=== PATIENT | male | born 1980 | race Caucasian/White ===

== ENCOUNTER 2020-09-29 09:57 | Emergency (ER) | payer BC, SELFPAY ==
[2020-09-29 10:18] VITALS: BP 146/80; PULSE 94; RESP 16; TEMP 36.7; O2SAT 98; BMI 26.5
--- NOTE | 2020-09-29 10:58 | XR_ITS ---
EXAMINATION: XR LUMBOSACRAL SPINE CLINICAL INFORMATION: Lower back pain COMPARISON: None TECHNIQUE: Three views of the lumbosacral spine. FINDINGS: There are 5 non rib bearing lumbar vertebra. No acute fracture, spondylolisthesis, or spondylolysis is identified. There is moderate narrowing of the L5-S1 disc space. Sacroiliac joints appear unremarkable. XR/XR lumbar spine 2-3V IMPRESSION: No significant bony abnormalities of the lumbar spine identified.
[2020-09-29 11:39] LABS: Glucose Urine UA NEG (NEG); Leukocyte Esterase Urine NEG (NEG); Nitrite Urine NEG (NEG); Specific Gravity - Urine 1.025 (1.005-1.025); Urine Blood TRACE (NEG); Urine Ketones 5 MG/DL (NEG); Urine Protein NEG (NEG-TRACE)
[2020-09-29 11:41] LABS: Appearance Urine CLEAR; Color Urine YELLOW
[2020-09-29 11:49] LABS: Mucus Urine TRACE /LPF; RBC Urine 0-2 /HPF (0); Squamous Epithelial Cell Urine TRACE /LPF; WBC Urine 0 /HPF (0-4)
--- NOTE | 2020-09-29 12:12 | ED_ITS ---
HPI - General Adult General Chief complaint: General Medical <Aroldo Perez NP - Last Filed: 09/29/20 12:47> Stated complaint: back pain <Aroldo Perez NP - Last Filed: 09/29/20 12:47> Time Seen by Provider: 09/29/20 10:58 <Aroldo Perez NP - Last Filed: 09/29/20 12:47> Source: patient <Aroldo Perez NP - Last Filed: 09/29/20 12:47> Mode of arrival: ambulatory <Aroldo Perez NP - Last Filed: 09/29/20 12:47> Limitations: no limitations <Aroldo Perez NP - Last Filed: 09/29/20 12:47> History of Present Illness HPI narrative: States right lower back pain unsure if he does something to pull his back pain has been positional for the past 2 or 3 days. States he had to call a work today for this. Denies any dysuria or hematuria. States he does have history of renal calculi but this feels different and he had it last time on the left side. No fever, headache or neck pain. No IVDA use. <Aroldo Perez NP - Last Filed: 09/29/20 12:47> Onset (ago): day(s) <Aroldo Perez NP - Last Filed: 09/29/20 12:47> Severity: moderate <Aroldo Perez NP - Last Filed: 09/29/20 12:47> Relieving factors: immobilization <Aroldo Perez NP - Last Filed: 09/29/20 12:47> Exacerbating factors: movement (States twisting about 90 degrees to the left exacerbates his pain) <Aroldo Perez NP - Last Filed: 09/29/20 12:47> Associated symptoms: denies other symptoms <Aroldo Perez NP - Last Filed: 09/29/20 12:47> Treatments prior to arrival: none <Aroldo Perez NP - Last Filed: 09/29/20 12:47> Related Data Home medications: Previous Rx's Medication Instructions Recorded cyclobenzaprine 5 mg PO TID PRN #14 tab 09/29/20 ibuprofen 800 mg PO Q8H PRN #30 tab 09/29/20 <GONZALO Jimenez Last Filed: 09/29/20 12:47> Allergies/adverse reactions: Allergies Allergy/AdvReac Type Severity Reaction Status Date / Time No Known Allergies Allergy Verified 09/29/20 10:16 <Aroldo Perez NP - Last Filed: 09/29/20 12:47> Review of Systems Review of Systems: Constitutional: No Weight loss, No Fever, No Chills, No Night Sweats, No Fatigue, No Malaise ENT/Mouth: No Hearing loss, No Ear Pain, No Nasal Congestion, No Sinus Pain, No Hoarseness, No sore throat, No Rhinorrhea, No Swallowing Difficulty Eyes: Negative Cardiovascular: No Chest Pain, No SOB, No Dyspnea on Exertion, No Orthopnea, No Edema, No Palpitations Respiratory: No Cough, No Sputum, No Wheezing, No Dyspnea Gastrointestinal: No Nausea, No Vomiting, No Diarrhea, No Constipation, No abdominal Pain, No Hematochezia, No Melena Genitourinary: no irregular bleeding, No Dysuria, No Urinary Frequency, No Hematuria, No Urinary Incontinence, No Urgency, No Flank Pain Musculoskeletal: No joint pain, No Myalgias, No Joint Swelling, has noted HPI Skin: No Skin Lesions, No rash Neuro: No Weakness, No Numbness, No Paresthesias, No Loss of Consciousness, No Dizziness, No Headache Psych: No Social Issues Heme/Lymph: Negative Endocrine: Negative <Aroldo Perez NP - Last Filed: 09/29/20 12:47> Yes all other systems are reviewed and are negative <Aroldo Perez NP - Last Filed: 09/29/20 12:47> [facility] Past Medical History Medical History: Medical History (Updated 09/29/20 @ 12:40 by Aroldo Perez NP) Kidney stone on left side <Aroldo Perez NP - Last Filed: 09/29/20 12:47> Social History Social History: Social History Smoked in Last 30 Days: No Use of substances other than those prescribed or required for medical reasons: No Advance Directives: No Advance Directives Information Provided: No <Aroldo Perez NP - Last Filed: 09/29/20 12:47> Physical Exam Vital Signs: Vital Signs: Last Vital Signs Temp 98.1 F 09/29/20 10:18 Pulse 94 09/29/20 10:18 Resp 16 09/29/20 10:18 BP 146/80 H 09/29/20 10:18 Pulse Ox 98 09/29/20 10:18 Body Mass Index 26.5 Reviewed <Aroldo Perez NP - Last Filed: 09/29/20 12:47> Vital Signs: Last Vital Signs Temp 98.1 F 09/29/20 10:18 Pulse 94 09/29/20 10:18 Resp 16 09/29/20 10:18 BP 146/80 H 09/29/20 10:18 Pulse Ox 98 09/29/20 10:18 Body Mass Index 26.5 <Enrique Richard MD - Last Filed: 09/29/20 14:08> Const: General: cooperative and healthy appearing; No acute distress or intoxicated appearing <Aroldo Perez NP - Last Filed: 09/29/20 12:47> Nutritional Appearance: average body habitus <Aroldo Perez NP - Last Filed: 12:47> Orientation/consciousness: patient oriented x3 <Aroldo Perez NP - Last Filed: 09/29/20 12:47> Neck: Neck: Yes normal visual inspection, No positive Brudzinski's sign, No positive Kernig's sign and No tender <Aroldo Perez NP - Last Filed: 09/29/20 12:47> Thyroid: Thyroid normal <Aroldo Perez NP - Last Filed: 09/29/20 12:47> Chest: Chest palpation & inspection: normal inspection of the chest <Aroldo Perez NP - Last Filed: 09/29/20 12:47> Resp: Effort & Inspection: normal respiratory effort <Aroldo Perez NP - Last Filed: 09/29/20 12:47> Cardio: Jugular venous distension: no JVD <Aroldo Perez NP - Last Filed: 09/29/20 12:47> GI: Inspection: Yes normal to inspection <Aroldo Perez NP - Last Filed: 09/29/20 12:47> Percussion: Yes normal to percussion <Aroldo Perez NP - Last Filed: 09/29/20 12:47> Auscultation: normal bowel sounds <Aroldo Perez, [employer] - Last Filed: 09/29/20 12:47> : General: Yes no CVA tenderness <Aroldo PerezGONZALO - Last Filed: 09/29/20 12:47> Back/Spine/Pelvis: Back: no CVA tenderness <Aroldo PerezGONZALO - Last Filed: 09/29/20 12:47> Skin: General skin exam: no rashes or lesions noted <Aroldo DialloGONZALO spencer - Last Filed: 09/29/20 12:47> Neuro: General: patient oriented x3 <Aroldo DialloGONZALO spencer - Last Filed: 09/29/20 12:47> Extrem: Other: Reproducible tender palpation over the right lumbar paraspinal muscle region. No midline step, step-off, rash. <Aroldo PerezGONZALO - Last Filed: 09/29/20 12:47> General: Yes normal to inspection <Aroldo PerezGONZALO - Last Filed: 09/29/20 12:47> Right upper extremity: full ROM <Aroldo DialloGONZALO spencer - Last Filed: 09/29/20 12:47> Course Course Course Narrative: AP/exam consistent with lumbar paraspinous muscle strain type injury. No low back pain red flags. UA negative without evidence of hematuria less likely renal calculi, lumbar spine x-ray without acute findings. Will discharge home with short course of NSAID muscle relaxants with precaution return follow-up instructions. Did request work note this was provided. Stable for discharge. <Aroldo DialloGONZALO spencer - Last Filed: 09/29/20 12:47> I have reviewed the chart <Enrique Richard MD - Last Filed: 09/29/20 14:08> Medical Decision Making Lab Data Labs: Lab Results 09/29/20 Range/Units 11:23 Urine Color YELLOW Urine Appearance CLEAR Urine pH 6.0 (5.0-8.0) Ur Specific [place] 1.025 (1.005-1.025) Urine Protein NEG (NEG-TRACE) MG/DL Urine Glucose (UA) NEG (NEG) MG/DL Urine Ketones 5 (NEG) MG/DL Urine Blood TRACE (NEG) Urine Nitrite NEG (NEG) Ur Leukocyte Esterase NEG (NEG) Urine RBC 0-2 (0) /HPF Urine WBC 0 (0-4) /HPF Ur Squamous Epith Cells TRACE /LPF Urine Bacteria NONE /LPF Urine Mucus TRACE /LPF <Aroldo Perez NP - Last Filed: 09/29/20 12:47> Lab Results 09/29/20 Range/Units 11:23 Urine Color YELLOW Urine Appearance CLEAR Urine pH 6.0 (5.0-8.0) Ur Specific [place] 1.025 (1.005-1.025) Urine Protein NEG (NEG-TRACE) MG/DL Urine Glucose (UA) NEG (NEG) MG/DL Urine Ketones 5 (NEG) MG/DL Urine Blood TRACE (NEG) Urine Nitrite NEG (NEG) Ur Leukocyte Esterase NEG (NEG) Urine RBC 0-2 (0) /HPF Urine WBC 0 (0-4) /HPF Ur Squamous Epith Cells TRACE /LPF Urine Bacteria NONE /LPF Urine Mucus TRACE /LPF <Enrique Richard MD - Last Filed: 09/29/20 14:08> Discharge Plan Discharge Clinical Impression: Strain of lumbar region <Aroldo Perez NP - Last Filed: 09/29/20 12:47> Patient Disposition: Home, Self-Care <Aroldo Perez NP - Last Filed: 09/29/20 12:47> Instructions: Low Back Strain (ED) <Aroldo Perez NP - Last Filed: 09/29/20 12:47> Additional Instructions: Gentle stretching Warm compresses Take ibuprofen as prescribed Take muscle relaxant twice a day Do not drink alcohol or drive or operate any heavy machinery while taking this medication as this can make least sleepy and drowsy Follow up as instructed Return if any concerns or worsening symptoms Thank you <Aroldo Perez NP - Last Filed: 09/29/20 12:47> Prescriptions: New ibuprofen 800 mg tablet 800 mg PO Q8H PRN (Reason: pain) Qty: 30 RF: 0 cyclobenzaprine 5 mg tablet 5 mg PO TID PRN (Reason: muscle spasm) Qty: 14 RF: 0 <Aroldo Perez NP - Last Filed: 09/29/20 12:47> Referrals: Physician,None [Primary Care Provider] - 1 week <Aroldo Perez NP - Last Filed: 09/29/20 12:47> Stand Alone Forms: Work/School Release <Aroldo Perez NP - Last Filed: 09/29/20 12:47> Interventions: ED Discharge Assessment Last Done: 09/29/20 12:47 <Aroldo Perez NP - Last Filed: 09/29/20 12:47> Discharge Date/Time: 09/29/20 12:48 <Aroldo Perez NP - Last Filed: 09/29/20 12:47>
== END 2020-09-29 12:48 | disposition home or self-care (01) ==
PROVIDERS: Nurse Practitioner Primary Care; Emergency Provider Emergency Medicine
DX: S39.012A Strain of muscle, fascia and tendon of lower back, initial encounter (principal); X58.XXXA Exposure to other specified factors, initial encounter; Y93.9 Activity, unspecified; Y92.9 Unspecified place or not applicable; Y99.9 Unspecified external cause status; Z87.442 Personal history of urinary calculi
CPT/HCPCS: 72100; 81001; 99283

== ENCOUNTER 2020-11-01 08:21 | Outpatient (REF) | payer BC, SELFPAY ==
[2020-11-01 11:11] LABS: MANUAL DIFF FLAG NO
[2020-11-01 11:47] LABS: Basophils Percent Auto 0.3 % (0-2); Eosinophils Absolute Auto 0.3 X10*3/uL (0.0-0.4); Eosinophils Percent Auto 3.1 % (0-4); Hematocrit 44.4 % (42-52); Hemoglobin 14.5 g/dl (14.0-18.0); Imm Gran Abs Auto 0.02 X10*3/uL (0.00-0.03); Imm Gran Pct Auto 0.2 % (0.0-0.4); Lymphocytes Absolute Auto 2.9 X10*3/uL (1.2-4.9); Lymphocytes Percent Auto 33.6 % (20-40); Mean Corpuscular HGB Conc 32.7 g/dl (31.0-36.0); Mean Corpuscular Hemoglobin 29.3 pg (27.0-33.0); Mean Corpuscular Volume 89.7 fL (80-98); Mean Platelet Volume 9.7 fL (9.4-12.4); Monocytes Absolute Auto 0.5 X10*3/uL (0.1-1.2); Monocytes Percent Auto 5.4 % (2-11); Neutrophils Percent Auto 57.4 % (45-73); Platelet Count 214 X10*3/uL (160-400); Red Blood Count 4.95 X10*6/uL (4.60-5.80); Red Cell Distribution Width 12.3 % (11.0-16.0); White Blood Count 8.7 X10*3/uL (4.8-10.8)
[2020-11-01 12:05] LABS: TSH reflex Free T4 2.51 uIU/mL (0.32-4.0)
[2020-11-01 12:10] LABS: Alanine Aminotransferase 25 U/L (0-40); Albumin Level 4.5 g/dL (3.5-5.0); Alkaline Phosphatase 76 U/L (39-117); Anion Gap 14 (12-20); Aspartate Amino Transferase 25 U/L (5-37); Bilirubin Total 0.5 mg/dL (0.0-1.0); Blood Urea Nitrogen 12 mg/dL (9-16); Calcium 9.2 mg/dL (8.4-10.2); Carbon Dioxide 31 mmol/L (22-29); Chloride 102 mmol/L (96-108); Cholesterol 223 mg/dL; Estimated Glomerular Filt Rate > 60; Glucose Fasting 93 mg/dL (60-99); HDL Cholesterol 59 mg/dL; LDL Cholesterol Calculated 145 mg/dl; Potassium 4.7 mmol/L (3.3-5.1); Sodium 142 mmol/L (135-145); Total Protein 7.7 g/dL (6.5-8.0); Triglycerides 97 mg/dL
== END 2020-11-01 08:22 | disposition home or self-care (01) ==
LOC: HO.HMGCLDS 08:21
PROVIDERS: PCP Family Medicine; Visit Provider Family Medicine
DX: Z00.00 Encounter for general adult medical examination without abnormal findings (principal)
CPT/HCPCS: 36415; 80053; 80061; 84443; 85025

== ENCOUNTER 2024-08-08 00:27 | Emergency (ER) | payer MEDICAID, SELFPAY ==
[2024-08-08 01:06] VITALS: BP 149/77; PULSE 86; RESP 18; TEMP 36.8; O2SAT 96; BMI 31.2
--- NOTE | 2024-08-08 03:00 | ED.DENTAL ---
HPI - Dental/Oral General Chief complaint: General Medical Stated complaint: left side face pain Time Seen by Provider: 08/08/24 02:52 Source: patient Mode of arrival: ambulatory Limitations: no limitations History of Present Illness ED Provider: HPI Narrative: Patient complaining of pain in the upper left incisor and the left side of face for last 3 days no fever no chills no swelling of the face no history of injury Related Data Previous Rx's ?Medication ?Instructions ?Recorded cyclobenzaprine 5 mg tablet 5 mg PO TID PRN muscle spasm #14 09/29/20 tabs ibuprofen 800 mg tablet 800 mg PO Q8H PRN pain #30 tabs 09/29/20 amoxicillin 875 mg-potassium 1 tab PO BID #20 tabs 08/08/24 clavulanate 125 mg tablet tramadol 50 mg tablet 50 mg PO Q6H PRN pain #20 tabs 08/08/24 Allergies Allergy/AdvReac Type Severity Reaction Status Date / Time No Known Allergies Allergy Verified 08/08/24 01:07 Review of Systems Review of Systems: Yes all other systems are reviewed and are negative [facility] Past Medical History Medical History Kidney stone on left side Surgical History History of appendectomy Family History Family History Father No problems noted. Mother No problems noted. Social History Social History Alcohol intake: never Cigarettes Per Day: 5 Advance Directives: No Advance Directives Information Provided: No Physical Exam Vital Signs: Vital Signs: Last Vital Signs Temp 98.3 F 08/08/24 01:06 Pulse 86 08/08/24 01:06 Resp 18 08/08/24 01:06 BP 149/77 H 08/08/24 01:06 Pulse Ox 96 08/08/24 01:06 O2 Del Method Room Air 08/08/24 01:06 BMI result Body Mass Index 31.2 Appearance: Alert. Oriented X3. No acute distress. Eyes: PERRLA, No Nystagmus ENT: Pharynx normal. Oral Mucosa moist Neck: Normal inspection. Neck supple. CVS: Normal heart rate and rhythm. Pulses normal. Respiratory: No respiratory distress. Equal air entry bilateral, no wheezing/rales/rhonchi Abdomen: Soft and nontender. Bowel sounds are present, no mass palpable, no CVA tenderness Skin: Skin warm and dry. Normal skin color. Normal skin turgor. Extremities: No lower extremity edema. No calf tenderness Neuro: Oriented X 3. No motor deficit. No sensory deficit.No cerebellar signs , cranial nerves II-XII intact HEENT: Teeth image: 1. Tenderness in tooth 10. No gum swelling no abscess no caries was seen Medical Decision Making Medical Decision Making MDM Narrative: Patient with pulpitis of tooth 10. No cavity was seen but patient has advised to follow with dentist will give antibiotic and pain medication Discharge Plan Discharge Clinical Impression: Tooth ache Patient Disposition: Home, Self-Care Instructions: Toothache (ED) Additional Instructions: Take antibiotics and pain medication as prescribed Follow up with your dentist Prescriptions: New tramadol 50 mg tablet 50 mg PO Q6H PRN (Reason: pain) Qty: 20 0RF amoxicillin-pot clavulanate 875-125 mg tablet 1 tab PO BID Qty: 20 0RF No Action ibuprofen 800 mg tablet 800 mg PO Q8H PRN (Reason: pain) Qty: 30 0RF cyclobenzaprine 5 mg tablet 5 mg PO TID PRN (Reason: muscle spasm) Qty: 14 0RF Print Language: Maltese
[2024-08-08] MEDS: Amoxicillin/Potassium Clav 875 MG TABLET PO (03:24)
[2024-08-08] MEDS: oxyCODONE HCl Immed Release 5 MG TABLET 10 MG PO (03:25)
[2024-08-08 03:38] VITALS: BP 149/77; PULSE 86; RESP 18; TEMP 36.8; O2SAT 96
== END 2024-08-08 03:40 | disposition home or self-care (01) ==
PROVIDERS: Emergency Provider Internal Medicine
DX: K08.89 Other specified disorders of teeth and supporting structures (principal)
CPT/HCPCS: 99283